=== PATIENT | male | born 1970 | race American Indian/Alaskan Native ===

== ENCOUNTER 2021-03-15 20:22 | Emergency (ER) | payer OTHER ==
[2021-03-15 23:02] VITALS: BP 127/79
[2021-03-15] MEDS ORDERED: oxyCODONE /ACETAMINOPHEN 5-325MG TAB PO ONE (23:42)
[2021-03-15] MEDS ORDERED: ONDANSETRON 4 MG ODT TAB PO ONE (23:42)
[2021-03-15] MEDS ORDERED: IBUPROFEN 600 MG TAB PO ONE (23:42)
--- NOTE | 2021-03-16 01:12 | Emergency Department Report ---
ED Lower Extremity HPI - General Chief Complaint: Extremity Injury, Lower Stated Complaint: LEFT ANKLE PAIN/MAY BE BROKEN Source: patient Mode of arrival: Ambulatory Limitations: No Limitations - History of Present Illness Initial Comments: Patient is a 50-year-old -U[place] male with no past medical history who presents to the ED with complaint of acute onset persistent severe left ankle pain after he lost balance when walking down the stairs and twisted his left ankle as he got tripped by his dog and the dog's toy about 2 hours ago. Patient states that he is unable to bear weight on the left leg because of severe left ankle pain. Patient denies fall, dizziness, syncope, loss of consciousness, nausea and vomiting, back pain, chest pain, shortness of breath, numbness and tingling or weakness of left leg or seizures. MD Complaint: ankle injury (Pain, swelling), fall -: Sudden, hour(s) (2) Injury: Ankle: Left (painful swollen) Type of Injury: inversion Place: home Severity: severe Severity scale (0 -10): 8 Improves With: nothing Worsens With: weight bearing, movement, palpation Context: fall (twisted left ankle when coming down the stairs) Associated Symptoms: snap/pop sensation, swelling, unable to bear weight. denies: numbness, tingling - Related Data Previous Rx's Medication Instructions Recorded Last Taken Type HYDROcodone/APAP 5-325 [[place] 1 each PO Q6HR PRN #12 tablet 03/16/21 Unknown Rx 5/325] Ibuprofen [Motrin] 800 mg PO Q8HR PRN #30 tablet 03/16/21 Unknown Rx Allergies Allergy/AdvReac Type Severity Reaction Status Date / Time No Known Allergies Allergy Unverified 03/15/21 22:58 ED Review of Systems ROS: Stated complaint: LEFT ANKLE PAIN/MAY BE BROKEN Other details as noted in HPI Constitutional: denies: chills, fever Eyes: denies: eye pain, eye discharge, vision change ENT: denies: ear pain, throat pain Respiratory: denies: cough, shortness of breath, wheezing Cardiovascular: denies: chest pain, palpitations Endocrine: no symptoms reported Gastrointestinal: denies: abdominal pain, nausea, diarrhea Genitourinary: denies: urgency, dysuria Musculoskeletal: joint swelling (left ankle pain and swelling), arthralgia (left ankle pain and swelling), myalgia. denies: back pain Skin: denies: rash, lesions Neurological: denies: headache, weakness, paresthesias Psychiatric: denies: anxiety, depression Hematological/Lymphatic: denies: easy bleeding, easy bruising ED Past Medical Hx - Past Medical History Previous Medical History?: No - Social History Smoking Status: Current Every Day Smoker - Medications Home Medications: Home Medications Medication Instructions Recorded Confirmed Last Taken Type HYDROcodone/APAP 5-325 [[place] 1 each PO Q6HR PRN #12 tablet 03/16/21 Unknown Rx 5/325] Ibuprofen [Motrin] 800 mg PO Q8HR PRN #30 tablet 03/16/21 Unknown Rx ED Physical Exam - General Limitations: No Limitations General appearance: alert, in no apparent distress - Head Head exam: Present: atraumatic, normocephalic, normal inspection - Eye Eye exam: Present: normal appearance, PERRL, EOMI Pupils: Present: normal accommodation - ENT ENT exam: Present: normal exam, normal orophraynx, mucous membranes moist, TM's normal bilaterally, normal external ear exam - Neck Neck exam: Present: normal inspection, full ROM - Respiratory Respiratory exam: Present: normal lung sounds bilaterally. Absent: respiratory distress, wheezes, rales, rhonchi, chest wall tenderness, accessory muscle use, decreased breath sounds, prolonged expiratory - Cardiovascular Cardiovascular Exam: Present: regular rate, normal rhythm, normal heart sounds. Absent: systolic murmur, diastolic murmur, rubs, gallop - GI/Abdominal GI/Abdominal exam: Present: soft, normal bowel sounds. Absent: tenderness, guarding, rebound, hyperactive bowel sounds, hypoactive bowel sounds, organomegaly - Extremities Exam Extremities exam: Present: normal inspection, tenderness (Palpable left ankle tenderness with swelling and limited ROM due to pain), normal capillary refill, joint swelling. Absent: full ROM (limited ROM of left ankle due to pain), pedal edema, calf tenderness - Back Exam Back exam: Present: normal inspection, full ROM. Absent: tenderness, CVA tenderness (R), muscle spasm, paraspinal tenderness, vertebral tenderness - Neurological Exam Neurological exam: Present: alert, oriented X3, CN II-XII intact, reflexes normal, other (Gait not tested due to patient's injury) - Psychiatric Psychiatric exam: Present: normal affect, normal mood - Skin Skin exam: Present: warm, dry, intact, normal color. Absent: rash ED Course Vital Signs 03/15/21 22:59 Temperature 98.5 F Pulse Rate 93 H Respiratory 16 Rate Blood Pressure 127/79 O2 Sat by Pulse 96 Oximetry ED Lower Extremity MDM - Radiology Data Radiology results: report reviewed, image reviewed [facility] [address] [place] [address] XRay Report Signed Patient: JHONATHAN TRACEY MR#: [id number] [birth year] : 1970 Acct:[id number] Age/Sex: 50 / M ADM Date: 03/15/21 Loc: ED Attending Dr: Ordering Physician: JIE ELLIS DO Date of Service: 03/15/21 Procedure(s): XR ankle 3+V LT Accession Number(s): [id number] cc: JIE ELLIS DO Fluoro Time In Minutes: LEFT ANKLE 3 VIEWS 3507 INDICATION: fall COMPARISON: None available. FINDINGS: Images are centered above the ankle joint. Prominent soft tissue swelling is seen, particularly laterally. Fracture dislocation of the ankle is noted. Distal fibular metaphysis shows an oblique fracture with mild posterior and lateral displacement. Tibia is subluxed moderately medially and posteriorly relative to the talus. There appears to be a vertical posterior tibial fracture in the posterior malleolar region. No definite medial malleolar fra cture is seen though a small bony density between the medial malleolus and the talus on AP view could be a small fragment. Signer Name: Jeffrey Daniels MD Signed: 03/16/2021 2:38 AM Workstation Name: [id number] Transcribed By: Dictated By: Jeffrey Daniels MD Electronically Authenticated By: Jeffrey Daniels MD Signed Date/Time: 03/16/21237 DD/ 6 TD/TT: - Medical Decision Making This is a 50-year-old -U[place] male with no past medical history who presents to the ED with complaint of acute onset persistent severe left ankle pain after he lost balance when walking down the stairs and twisted his left ankle as he got tripped by his dog and the dog's toy about 2 hours ago. Patient states that he is unable to bear weight on the left leg because of severe left ankle pain. In the ED, patient is alert and oriented x3 and is not in distress. Patient was treated for pain in the ED and left ankle x-ray showed displaced distal left fibula fracture. Patient's left ankle was splinted with sugar tong splint and on reevaluation, patient is neurovascularly intact on the left foot after the application of the splint. Patient was therefore discharged home on pain medications and was given a referral to the orthopedic surgeon Dr. Guzman for follow-up. Patient was advised to contact Dr. Guzman's office first thing in the morning to schedule a follow-up appointment. Patient was also advised return to the ED immediately if symptoms get worse. - Differential Diagnosis Ankle fracture; ankle sprain; leg contusion; foot sprain Critical care attestation.: If time is entered above; I have spent that time in minutes in the direct care of this critically ill patient, excluding procedure time. ED Disposition Clinical Impression: Displaced fracture of distal end of left fibula Sprain of left foot Qualifiers: Encounter type: initial encounter Qualified Code(s): S93.602A - Unspecified sprain of left foot, initial encounter Injury of left ankle Qualifiers: Encounter type: initial encounter Qualified Code(s): S99.912A - Unspecified injury of left ankle, initial encounter Disposition: TO HOME OR SELFCARE Is pt being admited?: No Does the pt Need Aspirin: No Condition: Stable Instructions: Fibular Fracture Rehab-SportsMed, Cast or Splint Care, Adult, [id number], Tibial and Fibular Fractures Additional Instructions: The left ankle x-ray shows a displaced distal left fibular fracture. Therefore, take medications with food, observe non-weight bearing on left leg, follow up with the Orthopedic Surgeon, Dr. Guzman for further evaluation. Contact Dr. Guzman's office this morning Tuesday March 16, 2021 to schedule a follow up appointment. Return to the ED immediately if symptoms get worse Prescriptions: Ibuprofen [Motrin] 800 mg PO Q8HR PRN #30 tablet PRN Reason: Pain , Severe (7-10) HYDROcodone/APAP 5-325 [[place] 5/325] 1 each PO Q6HR PRN #12 tablet PRN Reason: Pain Referrals: MILDRED GUZMAN MD [Staff Physician] - [place] (CONTACT DR. GUZMAN, THE ORTHOPEDIC SURGEON'S OFFICE THIS MORNING TO SCHEDULE A FOLLOW UP APPOINTMENT) Forms: Work/School Release Form(ED) Time of Disposition: 01:13 Print Language: PANAMANIAN
--- NOTE | 2021-03-16 02:43 | XRay Report ---
LEFT ANKLE 3 VIEWS 2317 INDICATION: fall COMPARISON: None available. FINDINGS: Images are centered above the ankle joint. Prominent soft tissue swelling is seen, particul hyacinth laterally. Fracture dislocation of the ankle is noted. Distal fibular metaphysis shows an obliqu e fracture with mild posterior and lateral displacement. Tibia is subluxed moderately medially and po steriorly relative to the talus. There appears to be a vertical posterior tibial fracture in the post erior malleolar region. No definite medial malleolar fracture is seen though a small bony density bet ween the medial malleolus and the talus on AP view could be a small fragment. Signer Name: Jeffrey Daniels MD Signed: 03/16/2021 2:38 AM Workstation Name: [id number]
== END 2021-03-16 03:38 | disposition home or self-care (01) ==
LOC: ED 20:22
DX: S82.832A Other fracture of upper and lower end of left fibula, initial encounter for closed fracture (principal); S93.692A Other sprain of left foot, initial encounter; F17.200 Nicotine dependence, unspecified, uncomplicated; Z79.899 Other long term (current) drug therapy; W18.39XA Other fall on same level, initial encounter; Y93.89 Activity, other specified; Y92.89 Other specified places as the place of occurrence of the external cause; Y99.8 Other external cause status
CPT/HCPCS: 99283; Q0162

== ENCOUNTER 2021-03-20 10:32 | Emergency (ER) | payer OTHER ==
[2021-03-20 10:48] VITALS: BP 141/87
--- NOTE | 2021-03-20 11:20 | Emergency Department Report ---
ED General Adult HPI - General Chief complaint: Extremity Injury, Lower Stated complaint: WRAP FOOT/SWELLING PAIN Time Seen by Provider: 03/20/21 10:53 Source: patient Mode of arrival: Ambulatory Limitations: No Limitations - History of Present Illness Initial comments: 50-year-old male presents to the ER today requesting rewrap of his OCL splint. Patient was seen here March 16, 2021 and was diagnosed with a fracture to his left ankle. Patient was placed in a sugar tong type splint and given crutches and instructions to follow-up with Ortho. Patient states that he did follow-up with Dr. Guzman he is scheduled for surgery March 26. Patient states that in the past couple days the splint has been feeling tight but it is also coming loose. He denies any worsening pain, he states that the pain medication was prescribed seems to be controlling the pain. He denies any numbness, tingling, or any discoloration to his toes. He states that he has not been bearing any weight on his leg. He denies any chest pain or shortness of breath. He reports no other symptoms at this time. MD Complaint: Request re-wrap of splint - Related Data Previous Rx's Medication Instructions Recorded Last Taken Type HYDROcodone/APAP 5-325 [[place] 1 each PO Q6HR PRN #12 tablet 03/16/21 Unknown Rx 5/325] Allergies Allergy/AdvReac Type Severity Reaction Status Date / Time No Known Allergies Allergy Verified 03/19/21 10:31 ED Review of Systems ROS: Stated complaint: WRAP FOOT/SWELLING PAIN Other details as noted in HPI Comment: All other systems reviewed and negative Constitutional: denies: chills, fever Eyes: denies: eye pain, eye discharge, vision change ENT: denies: ear pain, throat pain, dental pain, hearing loss, epistaxis, congestion Respiratory: denies: cough, shortness of breath, SOB with exertion, SOB at rest, wheezing Cardiovascular: denies: chest pain, palpitations Gastrointestinal: denies: abdominal pain, nausea, diarrhea, constipation, hematemesis, hematochezia Genitourinary: denies: urgency, dysuria Musculoskeletal: joint swelling, arthralgia Skin: denies: rash, lesions, change in color, change in hair/nails, pruritus Neurological: denies: headache, weakness, numbness, paresthesias, confusion, abnormal gait, vertigo Psychiatric: denies: anxiety, depression, auditory hallucinations, visual hallucinations, homicidal thoughts, suicidal thoughts Hematological/Lymphatic: denies: easy bleeding, easy bruising, swollen glands ED Past Medical Hx - Past Medical History Previous Medical History?: No Hx Hypertension: No - Surgical History Past Surgical History?: No - Social History Smoking Status: Current Every Day Smoker Substance Use Type: None - Medications Home Medications: Home Medications Medication Instructions Recorded Confirmed Last Taken Type HYDROcodone/APAP 5-325 [[place] 1 each PO Q6HR PRN #12 tablet 03/16/21 03/19/21 Unknown Rx 5/325] ED Physical Exam - General Limitations: No Limitations General appearance: alert, in no apparent distress - Head Head exam: Present: atraumatic, normocephalic, normal inspection - Eye Eye exam: Present: normal appearance, PERRL, EOMI Pupils: Present: normal accommodation - Neck Neck exam: Present: normal inspection - Respiratory Respiratory exam: Present: normal lung sounds bilaterally. Absent: respiratory distress, wheezes, rales, rhonchi - Cardiovascular Cardiovascular Exam: Present: regular rate, normal rhythm, normal heart sounds - Extremities Exam Extremities exam: Present: tenderness (Mild ttp to left ankle ), normal capillary refill, joint swelling (mainly left ankle diffusely (mild -moderate ) with mild bruising noted). Absent: full ROM (decrease ROM of ankle ), calf tenderness - Neurological Exam Neurological exam: Present: alert, oriented X3, CN II-XII intact - Psychiatric Psychiatric exam: Present: normal affect, normal mood - Skin Skin exam: Present: intact ED Course Vital Signs 03/20/21 10:43 Temperature 98.9 F Pulse Rate 103 H Respiratory 16 Rate Blood Pressure 141/87 O2 Sat by Pulse 96 Oximetry ED Medical Decision Making - Medical Decision Making Patient came to ER mainly have his OCL/fiberglass splint rewrapped because he states it felt tight but it was also coming loose. He was diagnosed with an ankle fracture March 16. Reviewed providers notes and x-ray from March 16 which showed FINDINGS: Images are centered above the ankle joint. Prominent soft tissue swelling is seen, particularly laterally. Fracture dislocation of the ankle is noted. Distal fibular metaphysis shows an oblique fracture with mild posterior and lateral displacement. Tibia is subluxed moderately medially and posteriorly relative to the talus. There appears to be a vertical posterior tibial fracture in the posterior malleolar region. No definite medial malleolar fracture is seen though a small bony density between the medial malleolus and the talus on AP view could be a small fragment. His PE does not suggest DVT, Cellulitis, compartment syndrome or any other acute emergent conditions requiring work up at this time. Repeat imaging not indicated at this time since it was no report of repeat injury to the leg. Patient will be placed back in sugar tong type splint that he had before. Neurovascular intact left lower extremity on reexamination post splint patient states that the splint feels better. Patient instructed to keep his appointment with Dr Guzman next month. Patient stable at time of discharge. Critical care attestation.: If time is entered above; I have spent that time in minutes in the direct care of this critically ill patient, excluding procedure time. ED Disposition Clinical Impression: Closed left ankle fracture Disposition: DC- TO HOME OR SELFCARE Is pt being admited?: No Does the pt Need Aspirin: No Condition: Stable Instructions: Cast or Splint Care, Adult, [id number], Ankle Fracture Additional Instructions: Do not remove the splint or get it wet. Continue to use your crutches to help ambulate. Continue to elevate your leg as often as possible. Keep your appointment for your surgery next month as scheduled. Return to the ER if symptoms changes or worsens in any way. Referrals: MILDRED GUZMAN MD [Staff Physician] - 7-10 days (As scheduled) Time of Disposition: 11:33
== END 2021-03-20 13:09 | disposition home or self-care (01) ==
LOC: ED 10:32
DX: S82.892A Other fracture of left lower leg, initial encounter for closed fracture (principal); F17.200 Nicotine dependence, unspecified, uncomplicated; Z79.899 Other long term (current) drug therapy; X58.XXXA Exposure to other specified factors, initial encounter; Y93.89 Activity, other specified; Y92.89 Other specified places as the place of occurrence of the external cause; Y99.8 Other external cause status

== ENCOUNTER 2021-06-22 08:30 | Outpatient (CLI) | payer OTHER ==
--- NOTE | 2021-06-22 09:32 | XRay Report ---
XR ankle 3+V LT INDICATION / CLINICAL INFORMATION: FRACTUREOF UPPER/LOWER END OF LEFT FIBULA. COMPARISON: 03/15/2021 radiograph FINDINGS: Post operative changes from plate and screw fixation of the fibula with healing of the fracture. No r etained foreign body. Hardware is intact. No abnormal lucency surrounds hardware. Normal alignment. Impression: 1. Expected postoperative changes. Signer Name: Aroldo Leonardo MD Signed: 06/22/2021 9:27 AM Workstation Name: [id number]
== END 2021-06-22 08:31 | disposition home or self-care (01) ==
LOC: XRAY 08:30
PROVIDERS: ATTEND Orthopaedic Surgery
DX: S82.492D Other fracture of shaft of left fibula, subsequent encounter for closed fracture with routine healing (principal); S82.832A Other fracture of upper and lower end of left fibula, initial encounter for closed fracture; X58.XXXA Exposure to other specified factors, initial encounter; X58.XXXD Exposure to other specified factors, subsequent encounter; Y93.89 Activity, other specified; Y92.89 Other specified places as the place of occurrence of the external cause; Y99.8 Other external cause status